=== PATIENT | female | born 1975 | race Caucasian/White ===

== ENCOUNTER 2020-10-27 08:00 | Outpatient (CLI) | payer OTHER ==
[2020-10-27 14:54] LABS: ALBUMIN 3.9 g/dL (3.2-5.5); ALBUMIN/GLOBULIN RATIO 1.1 (1.0-2.2); BILIRUBIN,TOTAL 0.6 mg/dL (0.2-1.0); CALCIUM 9.2 mg/dL (8.5-10.3); CREATININE 0.7 mg/dL (0.4-1.0); TOTAL PROTEIN 7.3 g/dL (6.7-8.2)
== END 2020-10-27 23:59 | disposition home or self-care (01) ==
LOC: LAB.S 08:00
PROVIDERS: ATTEND Physician Assistant
DX: R20.2 Paresthesia of skin (principal); E03.9 Hypothyroidism, unspecified
CPT/HCPCS: 36415; 80053; 83735; 84443

== ENCOUNTER 2020-11-26 08:02 | Outpatient (CLI) | payer OTHER ==
[2020-11-26 14:47] LABS: BASOPHILS % (AUTO) 0.5 %; EOSINOPHILS # (AUTO) 0.1 10^3/uL (0.0-0.7); EOSINOPHILS % (AUTO) 0.9 %; HGB - HEMOGLOBIN 14.2 g/dL (12.0-16.0); LYMPHOCYTES % (AUTO) 29.4 %; MEAN CORPUSCULAR HEMOGLOBIN 31.6 pg (27.0-31.0); MEAN CORPUSCULAR HGB CONC 33.6 g/dL (32.0-36.0); MEAN PLATELET VOLUME 10.6 fL (7.9-10.8); MONOCYTES # (AUTO) 0.6 10^3/uL (0.0-1.0); MONOCYTES % (AUTO) 9.2 %; NEUTROPHILS % (AUTO) 59.7 %; PLT - PLATELET COUNT 290 10^3/uL (130-450); RED BLOOD COUNT 4.49 10^6/uL (4.20-5.40); RED CELL DISTRIBUTION WIDTH 12.3 % (12.0-15.0); WHITE BLOOD COUNT 6.6 x10^3/uL (4.8-10.8)
[2020-11-26 15:49] LABS: % IRON SATURATION 19 % (20-50); CHOL/HDL RATIO 5.7 (<4.4); CHOLESTEROL 235 mg/dL; HDL CHOLESTEROL 41 mg/dL; IRON 79 ug/dL (28-170); LDL CHOLESTEROL,CALCULATED 166 mg/dL; TOTAL IRON BINDING CAPACITY 409 ug/dL (250-450); TRANSFERRIN 292 mg/dL (192-382); VLDL CHOLESTEROL 28 mg/dL
[2020-11-26 15:50] LABS: CRP - C-REACTIVE PROTEIN < 1.0 mg/dL (0-1.0)
== END 2020-11-26 08:03 | disposition home or self-care (01) ==
LOC: LAB.S 08:02
PROVIDERS: ATTEND Registered Nurse
DX: D36.13 Benign neoplasm of peripheral nerves and autonomic nervous system of lower limb, including hip (principal); E03.9 Hypothyroidism, unspecified; R20.2 Paresthesia of skin; G25.81 Restless legs syndrome
CPT/HCPCS: 36415; 80061; 82728; 83540; 83721; 84466; 85025; 86038; 86140

== ENCOUNTER 2020-12-13 09:53 | Outpatient (CLI) | payer OTHER ==
--- NOTE | 2020-12-13 10:35 | SLEEP CARE CONSULTATION ---
Information from patient questionnaire entered by Karen Carter. I have reviewed and concur with the information entered by Karen Carter. This document represents the service I personally performed and the decisions made by me, Kirsten Rowan MD, [facility]. History of Present Illness Service Date and Time: 12/13/2020 0953 Reason for Visit: New patient Chief Complaint: reports: Snoring, Other (Restless legs, tiredness, paused breathing and poor concentration) Date of Onset: 3 years Usual bedtime: 8-9 pm Time it takes to fall asleep: varies, ususally 10-30 minutes Snores at night: Yes Observed to quit breathing while asleep: No Sleeps alone due to snoring: No Number of times waking at night: 2-3 Reasons for waking at night: reports: Snoring, Gasping for air (rare), Pain Toss, Turn, or Twitch while sleeping: Yes Recalls having dreams: Yes Usually gets out of bed at: 4 am for work Feels refreshed in the morning: No Morning headache: Yes Sleepy or fatigued during the day: Yes (sometimes, depends on how I feel) Ever fallen asleep while driving: No Takes day naps: Yes Dreams during day naps: No Prior sleep studies: No Additional HPI information: I have the pleasure of seeing Ms. Roldan today regarding the possibility of her having obstructive sleep apnea. As you know, she is a 45 year old lady who complains of loud snore, observed apneas, unrefreshed sleep, and excessive daytime sleepiness for the past 3 years. The patient tells me that she normally goes to bed around 8 - 9 pm, and it takes her approximately 10 - 15 minutes to fall asleep. She has never been observed to stop breathing in her sleep. Her sleeps in the same bed. She can recall waking up on the average of 2 3 times during the night. Most of the time she wakes up because of having to use the bathroom. She has awakened occasionally because of her own snoring, choking, and having to gasp for air. There is not a lot of tossing and turning in her sleep. No somniloquy (sleep talking) or somnambulism (sleep walking). Generally she can recall having dreams. In the morning she usually gets up out of the bed around 4 a.m. not feeling refreshed nor rested. She has a morning headache. During the day she complains of feeling sleepy and fatigued. Her score on [place] Sleepiness Scale is 12 out of 24. She never has fallen asleep while driving nor has had any accident due to sleepiness. She usually takes naps during the day. She reports having impaired concentration during the day. She also reports having restless leg symptoms in the evening. 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 Patient is and lives in [place]. Have you smoked in the past 12 months: No Cigarettes per day (20/pack): 10 Years of smokin Quit date: 2004 Smoking Pack Years: 4.0 Alcohol use: No Caffeine use: Yes Caffeine amount and frequency: 2 cups in the AM Family History Family history of sleep disordered breathing: Yes (father ()) Family Hx Sleep Apnea: Father: Snoring Allergies and Home Medications Drug allergies reviewed: Yes (indomethacin and tramadol) Home medication list reviewed: Yes (levothroxine, naproxen, Mg, progesterone, Xyzal) Review of Systems Weight gain over past 5 years: 30 Cardiovascular: denies: high blood pressure, palpitations, chest pain, irregular heart rate or pulse, leg or foot swelling, have to sleep sitting up, other Respiratory: denies: shortness of breath, wheeze, sputum production, chronic cough, other Gastrointestinal: denies: heartburn, difficulty swallowing, nausea, vomitting, diarrhea, abdominal pain, other Urinary: reports: frequency, urgency Neurological: reports: headaches Psychiatric: reports: anxiety Ear/Nose/Throat: reports: nasal congestion, sinus problems, dry mouth/throat, wisdom teeth removed Endocrine: reports: thyroid disease, sluggishness, too hot or cold, increased urination Musculoskeletal: reports: joint pain, neck pain, back pain, joint swelling, muscle pain or cramping, other (psoriatic arthritis) Immunologic: reports: sneezing Physical Exam Vital signs obtained and entered by: Kirsten Rowan M.D. Blood Pressure: 130/80 Cuff size: regular Heart Rate: 93 O2 Saturation: 98 Height: 5 ft 8 in Weight: 262 lb Body Mass Index: 39.8 BMI Classification: Obese Neck circumference: 16 HEENT: No craniofacial malformation Impression and Plan IMPRESSION: 1. Obstructive Sleep Apnea-Hypopnea Syndrome, as evident by history of loud and irregular snoring, frequent awakenings during the night, unrefreshed sleep, morning headache, cognitive impairment, and daytime hypersomnolence. Narrow oropharynx and obesity are common predisposing factors for obstructive sleep apnea-hypopnea syndrome. I recommend proceeding to polysomnography to confirm the diagnosis and to assess severity. If she has significant sleep disordered breathing, a manual CPAP titration study will also be performed to find the optimal treatment pressure. I informed the patient of what the sleep studies involve and after some discussion, she agreed to proceed. Due to the long waiting time for the in-laboratory polysomnography, the patient will first have a home sleep apnea test (HSAT). Plan: 1. Schedule a home sleep apnea test (HSAT). If negative for sleep- disordered breathing, an in-laboratory polysomnography will follow. 2. Avoid long distance driving or when feeling sleepy. 3. Avoid alcohol, sedative and muscle relaxant around bedtime. 4. Attempt to lose weight. 5. Return for follow up after the test. Follow up recommended for: Weight management Visit Type: In Office Time Spent with Patient (minutes): 15 Provider Statement: I spent 100% of the Face to Face Visit with the patient with greater than 50% spent counseling the patient and coordination of care.
[2020-12-13 10:36] VITALS: BP 130/80
== END 2020-12-13 09:54 | disposition home or self-care (01) ==
LOC: SC 09:53
PROVIDERS: ATTEND Internal Medicine Pulmonary Disease
DX: G47.10 Hypersomnia, unspecified (principal); G47.8 Other sleep disorders; R41.89 Other symptoms and signs involving cognitive functions and awareness; R51.9 Headache, unspecified; R06.83 Snoring; E66.9 Obesity, unspecified; Z68.39 Body mass index [BMI] 39.0-39.9, adult
CPT/HCPCS: 99202; 99212

== ENCOUNTER 2021-01-10 14:57 | Outpatient (CLI) | payer OTHER | END 2021-01-10 14:58 | disposition home or self-care (01) | LOC: SC 14:57 | PROVIDERS: ATTEND Internal Medicine Pulmonary Disease | DX: G47.33 Obstructive sleep apnea (adult) (pediatric) (principal); E66.8 Other obesity; Z68.39 Body mass index [BMI] 39.0-39.9, adult | CPT/HCPCS: 95806 ==

== ENCOUNTER 2021-01-24 15:01 | Outpatient (CLI) | payer OTHER ==
--- NOTE | 2021-01-25 10:54 | SLEEP CARE CONSULTATION ---
Information from patient questionnaire entered by Girma Mccormack. I have reviewed and concur with the information entered by Girma Mccormack. This document represents the service I personally performed and the decisions made by me, Kirsten Rowan MD, [facility]. History of Present Illness Service Date and Time: 01/24/2021 1501 Initial [place] Sleepiness Scale score: 12 (in 2020) Current [place] Sleepiness Scale score: 12 Additional HPI information: HPI: Ms. Roldan returned for follow up of the home sleep apnea test (HSAT) performed on 01/10/2021. The test shows very severe obstructive sleep apnea- hypopnea with an AHI of 76.2 and lizbeth oxygen saturation of 80%. The respiratory events occurred independently of sleep stage and body position. The patient was informed of these findings. I explained to her the pathophysiology behind obstructive sleep apnea. We then spent quite a bit of time discussing different treatment options. For mild obstructive sleep apnea, surgery and oral appliance are alternatives to nasal CPAP therapy but in moderate or severe cases, nasal CPAP is the most effective and reliable treatment. After some discussion, she opted to go with the nasal CPAP therapy. I explained to her how CPAP machine works and what to expect when using the machine. She is encouraged to use CPAP every night especially in the first 2 to 3 nights in order to get used to it. She should call me or her CPAP supplier to discuss any mechanical problem that may occur. If she snores while wearing the CPAP or feels like she needs more air from the machine, she should notify me and I will increase the pressure. Sleep Study - Results Type of Sleep Study: Home sleep study Prior sleep studies: No Allergies and Home Medications Drug allergies reviewed: Yes Home medication list reviewed: Yes Review of Systems Review of systems same as previous: Yes Physical Exam Height: 5 ft 8 in Weight: 262 lb Body Mass Index: 39.8 BMI Classification: Obese Impression and Plan IMPRESSION: 1. Obstructive Sleep Apnea-Hypopnea Syndrome, very severe, associated with moderate hypoxemia. Obviously this is the cause of the patients symptoms of unrefreshed sleep, and excessive daytime sleepiness. As mentioned above, the patient will be started on a autoCPAP set between 5 and 15 cmH2O. Depending on her response and compliance she may be brought back for an overnight CPAP titration study. PLAN: 1. Prescription made for an autoCPAP, heated humidifier, and related supplies. . 2. Attempt to lose weight. 3. The patient was again cautioned on driving. She should be extra careful when driving until her sleepiness resolves completely on nasal CPAP therapy. 4. Return for follow up after one month of using the CPAP. Counseling Topics: Weight control Visit Type: In Office Time Spent with Patient (minutes): 15 Provider Statement: I spent 100% of the Face to Face Visit with the patient with greater than 50% spent counseling the patient and coordination of care.
== END 2021-01-24 15:02 | disposition home or self-care (01) ==
LOC: SC 15:01
PROVIDERS: ATTEND Internal Medicine Pulmonary Disease
DX: G47.33 Obstructive sleep apnea (adult) (pediatric) (principal); E66.9 Obesity, unspecified; Z68.39 Body mass index [BMI] 39.0-39.9, adult
CPT/HCPCS: 99212

== ENCOUNTER 2021-02-07 08:00 | Outpatient (CLI) | payer OTHER ==
--- NOTE | 2021-02-07 12:58 | XRAY Report ---
PROCEDURE: Ankle 3 View RT INDICATIONS: RIGHT ANKLE PAIN TECHNIQUE: 3 views of the ankle were acquired. COMPARISON: None FINDINGS: Bones: No fractures or dislocations. Ankle mortise is normally aligned. No suspicious bony lesions . Soft tissues: No tibiotalar joint effusion. Achilles tendon appears normal. IMPRESSION: No visualized acute fracture or dislocation. However, occult injury cannot be excluded. Recommend short interval imaging follow-up in 7-10 days as clinically indicated for additional evalua tion. Reviewed by: Amelia Langston MD on 02/07/2021 12:56 PM PDT Approved by: Amelia Langston MD on 02/07/2021 12:56 PM PDT Station ID: [id number]
== END 2021-02-07 23:59 | disposition home or self-care (01) ==
LOC: DI.S 08:00
PROVIDERS: ATTEND Physician Assistant Medical
DX: M25.571 Pain in right ankle and joints of right foot (principal)

== ENCOUNTER 2021-03-14 15:33 | Outpatient (CLI) | payer OTHER ==
--- NOTE | 2021-03-14 21:53 | SLEEP CARE CONSULTATION ---
Information from patient questionnaire entered by Karen Carter. I have reviewed and concur with the information entered by Karen Carter. This document represents the service I personally performed and the decisions made by me, Kirsten Rowan MD, [facility]. History of Present Illness Service Date and Time: 03/14/2021 1533 Previous diagnosis: Very Severe, Obstructive Sleep Apnea-Hypopnea Syndrome AHI: 76.2 (in 2020) Reason for follow up: first compliance Equipment type: CPAP Equipment obtained from: [employer] (in [place]) Mask style: Nasal Prior sleep studies: Yes Year and Where: 2020 - [facility] Type of Sleep Study: Home sleep study HPI additional information: HPI: Ms. Roldan returned today for follow up of nasal CPAP therapy. She was diagnosed to have very severe obstructive sleep apnea-hypopnea syndrome. The patient went to [employer] for the equipment and was fitted with a nasal mask. She reports using the device nightly but not all through the night. The compliance report shows usage in 30 nights out of the past 30 nights, averaging 3.7 hours a night. She complained of no particular problem with the device such as soreness on the face, dry nose, epistaxis, nasal congestion or headache. She thinks that the pressure of 5 15 cmH2O is occasionally too high. On the CPAP therapy she notices improvement in her sleep quality, and that she wakes up feeling fresher in the morning and more awake/alert during the day. The [place] Sleepiness Scale score 5. Her notices no snore at all. The average residual AHI is 3.3: and air leak, 2.5 L/min. The 90th percentile pressure is 9.7 cmH2O. CPAP Compliance Data - Data Reviewed with Patient Average duration of nightly device use: 3 hr 41 min Compliance rate %: 43 Current pressure setting (cmH2O): 5-15 Humidity settin Average residual AHI: 3.3 Subjective Missed days of use due to: reports: other (allergies, sneezing at night) Patient concerns: reports: condensation in mask/hose Current pressure setting perceived as: comfortable Initial [place] Sleepiness Scale score: 12 (in 2020) Current [place] Sleepiness Scale score: 5 Allergies and Home Medications Drug allergies reviewed: Yes Home medication list reviewed: Yes Review of Systems Review of systems same as previous: Yes Physical Exam Height: 5 ft 8 in Weight: 260 lb Body Mass Index: 39.5 BMI Classification: Obese Impression and Plan IMPRESSION: 1. Obstructive Sleep Apnea-Hypopnea Syndrome, very severe, with the patient doing fairly well on nasal CPAP therapy. She has [id number] compliance but significant clinical improvement. The current pressure appears effective but slightly uncomfortable. Overall, she is very satisfied with treatment and plans to continue with it long-term. For her comfort, I will set the pressure range at 5 10 cmH2O. PLAN: 1. Prescription to set the autoCPAP at 5 - 10 cmH2O. 2. Try to lose weight 3. Try a ResMed N30i mask 4. Prescription made to convert CPAP from rental to purchase. 5. Return in one month to document compliance. Follow up recommended for: Weight management Visit Type: In Office Time Spent with Patient (minutes): 15 Provider Statement: I spent 100% of the Face to Face Visit with the patient with greater than 50% spent counseling the patient and coordination of care.
== END 2021-03-14 15:34 | disposition home or self-care (01) ==
LOC: SC 15:33
PROVIDERS: ATTEND Internal Medicine Pulmonary Disease
DX: G47.33 Obstructive sleep apnea (adult) (pediatric) (principal); E66.9 Obesity, unspecified; Z68.39 Body mass index [BMI] 39.0-39.9, adult
CPT/HCPCS: 99212

== ENCOUNTER 2021-04-24 13:21 | Outpatient (CLI) | payer OTHER | END 2021-04-24 13:22 | disposition home or self-care (01) | LOC: LAB.S 13:21 | PROVIDERS: ATTEND Registered Nurse | DX: E03.9 Hypothyroidism, unspecified (principal) | CPT/HCPCS: 36415; 84443 ==

== ENCOUNTER 2021-05-09 09:53 | Outpatient (CLI) | payer OTHER ==
--- NOTE | 2021-05-16 12:25 | SLEEP CARE CONSULTATION ---
Information from patient questionnaire entered by Karen Carter. I have reviewed and concur with the information entered by Karen Carter. This document represents the service I personally performed and the decisions made by me, Kirsten Rowan MD, [facility]. History of Present Illness Service Date and Time: 05/09/2021 0953 Previous diagnosis: Very Severe, Obstructive Sleep Apnea-Hypopnea Syndrome AHI: 76.2 (in 2020) Reason for follow up: other (6 week with pressure change) Equipment type: CPAP Equipment obtained from: [employer] (in [place]) Mask style: Nasal Prior sleep studies: Yes Year and Where: 2020 - [facility] Type of Sleep Study: Home sleep study HPI additional information: HPI: Ms. Roldan returned today for follow up of nasal CPAP therapy after pressure change 2 months ago. She was diagnosed to have very severe obstructive sleep apnea-hypopnea syndrome. The patient went to [employer] for the equipment and was fitted with a nasal mask. She reports using the device almost nightly and all through the night. The compliance report shows usage in 30 nights out of the 30 nights between 03/30 04/28, averaging 4.2 hours a night. The > 4 hour compliance rate for the 30 day period is 70%. She complained of no particular problem with the device such as soreness on the face, dry nose, epistaxis, nasal congestion or headache. She thinks that the pressure of 5 10 cmH2O is more comfortable than 5 15 cmH2O. On the CPAP therapy she notices improvement in her sleep quality, and that she wakes up feeling fresher in the morning and more awake/alert during the day. The [place] Sleepiness Scale score 4. Her notices no snore at all. The average residual AHI is 4.4 (was 3.3): and air leak, 2.8 L/min. The 90th percentile pressure is 8.9 cmH2O. CPAP Compliance Data - Data Reviewed with Patient Average duration of nightly device use: 4 hr 7 min Compliance rate %: 64 (for 42 days)(met compliance 03/30-04/28 for 70%) Current pressure setting (cmH2O): 5-10 Humidity settin Average residual AHI: 4.4 Subjective Missed days of use due to: reports: other (TMJ flare up) Current pressure setting perceived as: comfortable Initial [place] Sleepiness Scale score: 12 (in 2020) Current [place] Sleepiness Scale score: 4 Allergies and Home Medications Drug allergies reviewed: Yes Home medication list reviewed: Yes Review of Systems Review of systems same as previous: Yes Physical Exam Height: 5 ft 8 in Weight: 242 lb Weight change since last visit: -18 Body Mass Index: 36.8 BMI Classification: Obese Impression and Plan IMPRESSION: 1. Obstructive Sleep Apnea-Hypopnea Syndrome, very severe, with the patient doing fairly well on nasal CPAP therapy. She now has adequate compliance and significant clinical improvement. The current pressure appears effective and comfortable. Overall, she is very satisfied with treatment and plans to continue with it long-term. No adjustment is necessary today. PLAN: 1. Continue with autoCPAP at 5 - 10 cmH2O. 2. Try to lose more weight 3. Try a ResMed N30i mask 4. Return for follow up in a year or earlier if there is any problem. Follow up with Sleep Care in: 1 year Follow up recommended for: Weight management Visit Type: In Office Time Spent with Patient (minutes): 15 Provider Statement: I spent 100% of the Face to Face Visit with the patient with greater than 50% spent counseling the patient and coordination of care.
== END 2021-05-09 09:54 | disposition home or self-care (01) ==
LOC: SC 09:53
PROVIDERS: ATTEND Internal Medicine Pulmonary Disease
DX: G47.33 Obstructive sleep apnea (adult) (pediatric) (principal); E66.9 Obesity, unspecified; Z68.36 Body mass index [BMI] 36.0-36.9, adult
CPT/HCPCS: 99212; 99213

== ENCOUNTER 2021-06-23 09:05 | Outpatient (CLI) | payer OTHER ==
[2021-06-23 15:47] LABS: CHOLESTEROL 160 mg/dL; HDL CHOLESTEROL 40 mg/dL; LDL CHOLESTEROL,CALCULATED 86 mg/dL; LDL/HDL RATIO 2.2 (<4.4); TRIGLYCERIDES 172 mg/dL; VLDL CHOLESTEROL 34 mg/dL
[2021-06-23 15:56] LABS: THYROID STIMULATING HORMONE 2.47 uIU/mL (0.34-5.60)
== END 2021-06-23 09:06 | disposition home or self-care (01) ==
LOC: LAB.S 09:05
PROVIDERS: ATTEND Registered Nurse
DX: E78.5 Hyperlipidemia, unspecified (principal); E03.9 Hypothyroidism, unspecified
CPT/HCPCS: 36415; 80061; 83721; 84443

== ENCOUNTER 2021-09-18 15:04 | Outpatient (CLI) | payer OTHER | END 2021-09-18 23:59 | disposition home or self-care (01) | LOC: LAB 15:04 | PROVIDERS: ATTEND Physician Assistant Medical | DX: R05.9 Cough, unspecified (principal); Z20.822 Contact with and (suspected) exposure to COVID-19 ==

== ENCOUNTER 2021-11-02 08:00 | Outpatient (CLI) | payer OTHER | END 2021-11-02 23:59 | LOC: LAB 08:00 | PROVIDERS: ATTEND Emergency Medicine | DX: J34.89 Other specified disorders of nose and nasal sinuses (principal); Z20.822 Contact with and (suspected) exposure to COVID-19 ==

== ENCOUNTER 2022-01-26 14:02 | Outpatient (CLI) | payer OTHER ==
[2022-01-26 19:58] LABS: BASOPHILS % (AUTO) 0.4 %; EOSINOPHILS # (AUTO) 0.1 10^3/uL (0.0-0.7); EOSINOPHILS % (AUTO) 0.6 %; HCT - HEMATOCRIT 39.7 % (37.0-47.0); HGB - HEMOGLOBIN 13.8 g/dL (12.0-16.0); LYMPHOCYTES # (AUTO) 2.2 10^3/uL (1.5-3.5); LYMPHOCYTES % (AUTO) 27.4 %; MEAN CORPUSCULAR HEMOGLOBIN 32.2 pg (27.0-31.0); MEAN CORPUSCULAR HGB CONC 34.8 g/dL (32.0-36.0); MEAN CORPUSCULAR VOLUME 92.5 fL (81.0-99.0); MEAN PLATELET VOLUME 10.7 fL (7.9-10.8); MONOCYTES # (AUTO) 0.6 10^3/uL (0.0-1.0); MONOCYTES % (AUTO) 7.1 %; NEUTROPHILS # (AUTO) 5.3 10^3/uL (1.5-6.6); NEUTROPHILS % (AUTO) 64.4 %; PLT - PLATELET COUNT 288 10^3/uL (130-450); RED BLOOD COUNT 4.29 10^6/uL (4.20-5.40); RED CELL DISTRIBUTION WIDTH 12.2 % (12.0-15.0); WHITE BLOOD COUNT 8.2 x10^3/uL (4.8-10.8)
[2022-01-26 20:13] LABS: ALBUMIN 4.3 g/dL (3.2-5.5); ALBUMIN/GLOBULIN RATIO 1.7 (1.0-2.2); ALKALINE PHOSPHATASE 46 IU/L (42-121); ALT ALANINE AMINOTRANSFERASE 23 IU/L (10-60); AST ASPARTATE AMINOTRANSFERASE 19 IU/L (10-42); BILIRUBIN,TOTAL 0.7 mg/dL (0.2-1.0); BUN - BLOOD UREA NITROGEN 14 mg/dL (6-20); CALCIUM 9.2 mg/dL (8.5-10.3); CARBON DIOXIDE - CO2 25 mmol/L (21-32); CHLORIDE 101 mmol/L (101-111); CHOL/HDL RATIO 3.5 (<4.4); CHOLESTEROL 145 mg/dL; CREATININE 0.8 mg/dL (0.4-1.0); GFR - MDRD 78 (>89); GLUCOSE 86 mg/dL (70-100); HDL CHOLESTEROL 42 mg/dL; LDL CHOLESTEROL,CALCULATED 80 mg/dL; LDL/HDL RATIO 1.9 (<4.4); POTASSIUM 3.6 mmol/L (3.5-5.0); SODIUM 136 mmol/L (135-145); TOTAL PROTEIN 6.9 g/dL (6.7-8.2); TRIGLYCERIDES 115 mg/dL; VLDL CHOLESTEROL 23 mg/dL
[2022-01-26 20:24] LABS: THYROID STIMULATING HORMONE 2.74 uIU/mL (0.34-5.60)
== END 2022-01-26 14:03 | disposition home or self-care (01) ==
LOC: LAB.S 14:02
PROVIDERS: ATTEND Registered Nurse
DX: E78.5 Hyperlipidemia, unspecified (principal); E03.9 Hypothyroidism, unspecified; Z79.899 Other long term (current) drug therapy
CPT/HCPCS: 36415; 80053; 80061; 83721; 84443; 85025

== ENCOUNTER 2022-10-02 13:29 | Outpatient (CLI) | payer OTHER ==
[2022-10-02 20:09] LABS: BASOPHILS # (AUTO) 0.1 10^3/uL (0.0-0.1); BASOPHILS % (AUTO) 0.5 %; EOSINOPHILS # (AUTO) 0.1 10^3/uL (0.0-0.7); EOSINOPHILS % (AUTO) 0.9 %; HCT - HEMATOCRIT 41.6 % (37.0-47.0); HGB - HEMOGLOBIN 13.7 g/dL (12.0-16.0); LYMPHOCYTES # (AUTO) 2.8 10^3/uL (1.5-3.5); LYMPHOCYTES % (AUTO) 28.7 %; MEAN CORPUSCULAR HEMOGLOBIN 31.3 pg (27.0-31.0); MEAN CORPUSCULAR HGB CONC 32.9 g/dL (32.0-36.0); MEAN PLATELET VOLUME 10.5 fL (7.9-10.8); MONOCYTES # (AUTO) 0.7 10^3/uL (0.0-1.0); MONOCYTES % (AUTO) 7.3 %; NEUTROPHILS % (AUTO) 62.2 %; PLT - PLATELET COUNT 294 10^3/uL (130-450); RED BLOOD COUNT 4.38 10^6/uL (4.20-5.40); RED CELL DISTRIBUTION WIDTH 12.6 % (12.0-15.0); WHITE BLOOD COUNT 9.7 x10^3/uL (4.8-10.8)
[2022-10-02 20:28] LABS: ALBUMIN 4.1 g/dL (3.2-5.5); ALBUMIN/GLOBULIN RATIO 1.4 (1.0-2.2); BILIRUBIN,TOTAL 0.3 mg/dL (0.2-1.0); CALCIUM 9.3 mg/dL (8.5-10.3); CREATININE 0.8 mg/dL (0.4-1.0); POTASSIUM 4.1 mmol/L (3.5-5.0); TOTAL PROTEIN 7.1 g/dL (6.7-8.2)
[2022-10-02 20:44] LABS: THYROID STIMULATING HORMONE 7.16 uIU/mL (0.34-5.60)
[2022-10-02 20:46] LABS: FREE T4 (FREE THYROXINE) 0.78 ng/dL (0.58-1.64)
[2022-10-02 21:13] LABS: ESTIMATED AVERAGE GLUCOSE 111 mg/dL (70-100); HEMOGLOBIN A1c% 5.5 % (4.27-6.07)
== END 2022-10-02 13:30 | disposition home or self-care (01) ==
LOC: LAB.S 13:29
PROVIDERS: ATTEND Nurse Practitioner Obstetrics & Gynecology
DX: R53.83 Other fatigue (principal); E66.9 Obesity, unspecified
CPT/HCPCS: 36415; 80053; 83036; 84439; 84443; 85025

== ENCOUNTER 2023-01-24 13:37 | Outpatient (CLI) | payer OTHER ==
[2023-01-24 20:47] LABS: T4 (THYROXINE) 12.42 ug/dL (6.09-12.23)
[2023-01-24 20:52] LABS: THYROID STIMULATING HORMONE 0.31 uIU/mL (0.34-5.60)
== END 2023-01-24 13:38 | disposition home or self-care (01) ==
LOC: LAB.S 13:37
PROVIDERS: ATTEND Registered Nurse
DX: E03.9 Hypothyroidism, unspecified (principal)
CPT/HCPCS: 36415; 80061; 83721; 84436; 84443; 84480

== ENCOUNTER 2023-02-23 07:20 | Outpatient (CLI) | payer OTHER ==
[2023-02-23 15:00] LABS: T4 (THYROXINE) 9.36 ug/dL (6.09-12.23)
[2023-02-23 15:04] LABS: THYROID STIMULATING HORMONE 2.29 uIU/mL (0.34-5.60)
[2023-02-23 15:07] LABS: CHOL/HDL RATIO 3.5 (<4.4); CHOLESTEROL 147 mg/dL; HDL CHOLESTEROL 42 mg/dL; LDL CHOLESTEROL,CALCULATED 69 mg/dL; LDL/HDL RATIO 1.6 (<4.4); TRIGLYCERIDES 181 mg/dL; VLDL CHOLESTEROL 36 mg/dL
== END 2023-02-23 07:21 | disposition home or self-care (01) ==
LOC: LAB.S 07:20
PROVIDERS: ATTEND Registered Nurse
DX: E03.9 Hypothyroidism, unspecified (principal); E78.5 Hyperlipidemia, unspecified
CPT/HCPCS: 36415; 80061; 83721; 84436; 84443; 84480

== ENCOUNTER 2023-04-03 14:37 | Outpatient (CLI) | payer OTHER ==
--- NOTE | 2023-04-03 19:15 | CT Report ---
PROCEDURE: SINUS SCREENING WO INDICATIONS: CHRONIC PANSINUSITIS TECHNIQUE: Noncontrast 3.0 mm axial images acquired from the frontal sinuses to the mid-sella, with coronal and sagittal reformats. For radiation dose reduction, the following was used: automated exposure control , adjustment of mA and/or kV according to patient size. COMPARISON: None. FINDINGS: Image quality: Excellent. Maxillary Sinuses: No bony remodeling or destruction. Sinuses are clear. Ethmoid Air Cells: No bony remodeling or destruction. Sinuses are clear. Sphenoid Sinuses: No bony remodeling or destruction. Sinuses are clear. Frontal Sinuses: No bony remodeling or destruction. Sinuses are clear. Ostiomeatal Complexes: The ostiomeatal complexes are patent, yet they are constitutionally narrowed, with bilateral Opal cells. Miscellaneous: Visualized intra-orbital contents are normal. 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 There is mild leftward nasal septal deviation. The lamina papyracea is intact. IMPRESSION: No significant active paranasal sinus disease is seen. The ostiomeatal complexes are patent, yet they are constitutionally narrowed, with bilateral Opal c ells. 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 There is mild leftward nasal septal deviation seen. Reviewed by: Heber Barraza MD on 04/03/2023 6:14 PM ANDRE Approved by: Heber Barraza MD on 04/03/2023 6:14 PM ANDRE Station ID: [id number]
== END 2023-04-03 14:38 | disposition home or self-care (01) ==
LOC: DI 14:37
PROVIDERS: ATTEND Otolaryngology
DX: R51.9 Headache, unspecified (principal); J32.4 Chronic pansinusitis; J34.2 Deviated nasal septum

== ENCOUNTER 2023-04-03 14:39 | Outpatient (CLI) | payer OTHER ==
--- NOTE | 2023-04-04 10:07 | Mammography Report ---
BILATERAL DIGITAL SCREENING MAMMOGRAM 3D/2D: 04/03/2023 CLINICAL: Mother with breast cancer. Routine screening. Comparison is made to exam dated: 08/20/2019 mammogram - [facility]. There are scattered areas of fibroglandular density in both breasts (category b / 25%-50% glandular t issue). No significant masses, calcifications, or other findings are seen in either breast. There has been no significant interval change. IMPRESSION: NEGATIVE There is no mammographic evidence of malignancy. A 1 year screening mammogram is recommended. Based on the Tyrer Cuzick model (a risk assessment model) the patients lifetime risk is 15.9% and he r 10 year risk is 3.4%. According to the ACR, ACS, and NCCN guidelines, an annual breast MRI exam jannie ng with mammogram is recommended if the patients lifetime risk is 20% or greater. This exam was interpreted at Station ID: [id number]. NOTE: For mammograms, a report in lay terms will be sent to the patient. Approximately 15% of breast malignancies will not be visualized mammographically. In the management of a palpable breast mass, a negative mammogram must not discourage biopsy of a clinically suspicious lesion. Electronically Signed By: Pankaj Lyon M.D. at/juana:04/04/2023 07:37:59 letter sent: No_Letter ACR BI-RADS Category 1: Negative 3341F PARENCHYMAL PATTERN: (A) - The breast(s) demonstrate(s) scattered fibroglandular densities. BI-RADS CATEGORY: (1) - 1 Mammogram [id number] 1 year screening LATERALITY: (B)
== END 2023-04-03 14:40 | disposition home or self-care (01) ==
LOC: DI 14:39
PROVIDERS: ATTEND Registered Nurse
DX: Z12.31 Encounter for screening mammogram for malignant neoplasm of breast (principal); Z80.3 Family history of malignant neoplasm of breast

== ENCOUNTER 2023-05-30 11:43 | Outpatient (CLI) | payer OTHER | END 2023-05-30 11:44 | disposition home or self-care (01) | LOC: LAB.S 11:43 | PROVIDERS: ATTEND Student in an Organized Health Care Education/Training Program | DX: E03.9 Hypothyroidism, unspecified (principal) | CPT/HCPCS: 36415; 84439; 84443 ==

== ENCOUNTER 2023-10-08 15:15 | Outpatient (CLI) | payer OTHER ==
--- NOTE | 2023-10-08 14:44 | SLEEP CARE CONSULTATION ---
Information from patient questionnaire entered by Wendy Pickard. I have reviewed and concur with the information entered by Wendy Pickard. This document represents the service I personally performed and the decisions made by me, Kirsten Rowan MD, [facility]. History of Present Illness Service Date and Time: 10/08/2023 1440 Previous diagnosis: Very Severe, Obstructive Sleep Apnea-Hypopnea Syndrome AHI: 76.2 (in 2020) Reason for follow up: annual (LAST SEEN 2020) Equipment type: CPAP (RESMED) Equipment obtained from: [employer] (in [place]) Mask style: Nasal Prior sleep studies: Yes Year and Where: 2020 - [facility] Type of Sleep Study: Home sleep study HPI additional information: Ms. Roldan was seen today via video telemedicine ([facility]) for follow up of nasal CPAP therapy after she was last seen 2 years ago. She was diagnosed to have very severe obstructive sleep apnea-hypopnea syndrome. The patient went to [facility] for the equipment. She now uses a ResMed AirTouch F-20 full face mask because nasal masks made her claustrophobic (unable to breathe through her mouth). She reports barely using the device due to cough and other upper respiratory symptoms. The compliance report shows usage in 12 nights out of the 365 nights. She complained of no particular problem with the device such as soreness on the face, dry nose, epistaxis, nasal congestion or headache. She thinks that the pressure of 5 10 cmH2O is alright. On the CPAP therapy she notices improvement in her sleep quality, and that she wakes up feeling fresher in the morning and more awake/alert during the day. The [place] Sleepiness Scale score 6. Sleep Study - Results Type of Sleep Study: Home sleep study Prior sleep studies: Yes Year and Where: 2020 - [facility] Subjective Initial [place] Sleepiness Scale score: 12 (in 2020) Current [place] Sleepiness Scale score: 6 (10/08/23) Allergies and Home Medications Drug allergies reviewed: Yes Home medication list reviewed: Yes Review of Systems Review of systems same as previous: Yes (NO CHANGE) Physical Exam Vital signs obtained and entered by: WENDY Bolivar MA Height: 5 ft 11 in (PER PT) Weight: 280 lb (PER PT) Body Mass Index: 39.0 BMI Classification: Obese Impression and Plan IMPRESSION: 1. Obstructive Sleep Apnea-Hypopnea Syndrome, very severe (AHI was 76.2), with the patient not using her CPAP due to persistent upper respiratory symptoms following a COVID infection a year ago. She has not gotten supplies for a while. To make the treatment more comfortable, I will lower the pressure range to 4 8 cmH2O. PLAN: 1. AutoCPAP lowered to 4- 8 cmH2O. 2. Try to lose weight. Bariatric surgery should be considered. 3. Prescription made for supplies through [employer]. 4. Return for follow up in two months. Counseling Topics: Weight control Prescriptions: Device supplies Follow up with Sleep Care in: 1-2 months Visit Type: Telehealth Video Video Type: Doximity Patient Location: Home Location of Provider: Office Patient agrees and consents to this telehealth visit type: Yes Patient agrees to have their insurance billed: Yes Time Spent with Patient (minutes): 15 Provider Statement: I spent 100% of the Telehealth Video Call with the patient with greater than 50% spent counseling the patient and coordination of care.
== END 2023-10-08 15:16 | disposition home or self-care (01) ==
LOC: SC 15:15
PROVIDERS: ATTEND Internal Medicine Pulmonary Disease
DX: G47.33 Obstructive sleep apnea (adult) (pediatric) (principal); E66.9 Obesity, unspecified; Z68.39 Body mass index [BMI] 39.0-39.9, adult; Z86.16 Personal history of COVID-19

== ENCOUNTER 2023-12-03 14:40 | Outpatient (CLI) | payer OTHER ==
--- NOTE | 2023-12-03 21:03 | SLEEP CARE CONSULTATION ---
Information from patient questionnaire entered by Wendy Pickard. I have reviewed and concur with the information entered by Wendy Pickard. This document represents the service I personally performed and the decisions made by me, Kirsten Rowan MD, [facility]. History of Present Illness Service Date and Time: 12/03/2023 1440 Previous diagnosis: Very Severe, Obstructive Sleep Apnea-Hypopnea Syndrome AHI: 76.2 (in 2020) Reason for follow up: other (2 MONTH F/U) Equipment type: CPAP (RESMED) Equipment obtained from: [facility] (in [place]) Mask style: Nasal Prior sleep studies: Yes Year and Where: 2020 - [facility] Type of Sleep Study: Home sleep study HPI additional information: Ms. Roldan had a telephone only visit for follow up of nasal CPAP therapy after she was last seen 2 months ago. She was diagnosed to have very severe obstructive sleep apnea-hypopnea syndrome. The patient went to [facility] for the equipment. She now uses a [employer]Med AirTouch F-20 full face mask because nasal masks made her claustrophobic (unable to breathe through her mouth). After the pressure was lowered from 5 10 cmH2O to 4 - 8 cmH2O, she has been using her CPAP more. On the CPAP therapy she notices improvement in her sleep quality, and that she wakes up feeling fresher in the morning and more awake/alert during the day. The [place] Sleepiness Scale score 2. The compliance data show usage in 49 out of the past 60 nights, averaging 4.6 hours a night. The residual AHI is 7.4, and average air leak is 1.8 L/minute. Sleep Study - Results Type of Sleep Study: Home sleep study Prior sleep studies: Yes Year and Where: 2020 - [facility] CPAP Compliance Data - Data Reviewed with Patient Average duration of nightly device use: 4HRS 33MINS Compliance rate %: 37 (10/01/23-11/29/23) Current pressure setting (cmH2O): 4-8 Average residual AHI: 7.4 Subjective Initial [place] Sleepiness Scale score: 12 (in 2020) Current [place] Sleepiness Scale score: 2 (12/03/23) Allergies and Home Medications Drug allergies reviewed: Yes Home medication list reviewed: Yes Review of Systems Review of systems same as previous: Yes (NO CHANGE) Physical Exam Vital signs obtained and entered by: WENDY Bolivar MA Height: 5 ft 11 in (PER PT) Weight: 250 lb (PER PT) Body Mass Index: 34.8 BMI Classification: Obese Impression and Plan IMPRESSION: 1. Obstructive Sleep Apnea-Hypopnea Syndrome, very severe (AHI was 76.2), with the patient now using her CPAP more after the pressure was lowered. She reports 30-lb weight loss in just 2 months through dieting. The plans to use her CPAP more. PLAN: 1. Leave the autoCPAP at 4- 8 cmH2O. 2. Try to lose more weight. 3. Return for follow up in two months to recheck compliance and residual AHI. Counseling Topics: Weight control Follow up with Sleep Care in: 1-2 months Visit Type: Telehealth Phone Video Type: Other Patient agrees and consents to this telehealth visit type: Yes Patient agrees to have their insurance billed: Yes Time Spent with Patient (minutes): 15 Provider Statement: I spent 100% of the Telehealth Phone Call with the patient with greater than 50% spent counseling the patient and coordination of care.
== END 2023-12-03 14:41 | disposition home or self-care (01) ==
LOC: SC 14:40
PROVIDERS: ATTEND Internal Medicine Pulmonary Disease
DX: G47.33 Obstructive sleep apnea (adult) (pediatric) (principal); E66.9 Obesity, unspecified; Z68.34 Body mass index [BMI] 34.0-34.9, adult

== ENCOUNTER 2024-01-29 08:35 | Outpatient (CLI) | payer OTHER ==
[2024-01-29 14:45] LABS: BASOPHILS % (AUTO) 0.4 %; EOSINOPHILS # (AUTO) 0.1 10^3/uL (0.0-0.7); EOSINOPHILS % (AUTO) 0.8 %; HCT - HEMATOCRIT 42.8 % (37.0-47.0); HGB - HEMOGLOBIN 13.8 g/dL (12.0-16.0); LYMPHOCYTES # (AUTO) 2.3 10^3/uL (1.5-3.5); LYMPHOCYTES % (AUTO) 29.9 %; MEAN CORPUSCULAR HGB CONC 32.2 g/dL (32.0-36.0); MEAN PLATELET VOLUME 11.5 fL (7.9-10.8); MONOCYTES # (AUTO) 0.7 10^3/uL (0.0-1.0); MONOCYTES % (AUTO) 8.6 %; NEUTROPHILS # (AUTO) 4.6 10^3/uL (1.5-6.6); NEUTROPHILS % (AUTO) 60.2 %; PLT - PLATELET COUNT 296 10^3/uL (130-450); RED CELL DISTRIBUTION WIDTH 12.6 % (12.0-15.0); WHITE BLOOD COUNT 7.7 x10^3/uL (4.8-10.8)
[2024-01-29 15:10] LABS: ALBUMIN 3.8 g/dL (3.2-5.5); ALBUMIN/GLOBULIN RATIO 1.8 (1.0-2.2); ALKALINE PHOSPHATASE 57 IU/L (42-121); ALT ALANINE AMINOTRANSFERASE 12 IU/L (10-60); AST ASPARTATE AMINOTRANSFERASE 13 IU/L (10-42); BILIRUBIN,TOTAL 0.7 mg/dL (0.2-1.0); BUN - BLOOD UREA NITROGEN 11 mg/dL (6-20); CALCIUM 9.1 mg/dL (8.5-10.3); CARBON DIOXIDE - CO2 26 mmol/L (21-32); CHLORIDE 108 mmol/L (101-111); CHOL/HDL RATIO 3.3 (<4.4); CHOLESTEROL 115 mg/dL; CREATININE 0.7 mg/dL (0.6-1.3); GFR - MDRD 90 (>89); GLUCOSE 95 mg/dL (74-104); HDL CHOLESTEROL 35 mg/dL; LDL CHOLESTEROL,CALCULATED 56 mg/dL; LDL/HDL RATIO 1.6 (<4.4); SODIUM 138 mmol/L (135-145); TOTAL PROTEIN 5.9 g/dL (6.4-8.9); TRIGLYCERIDES 120 mg/dL (48-352); VLDL CHOLESTEROL 24 mg/dL
[2024-01-29 15:13] LABS: THYROID STIMULATING HORMONE 0.05 uIU/mL (0.34-5.60)
== END 2024-01-29 08:36 | disposition home or self-care (01) ==
LOC: LAB.S 08:35
PROVIDERS: ATTEND Registered Nurse
DX: Z13.228 Encounter for screening for other metabolic disorders (principal); Z13.220 Encounter for screening for lipoid disorders; Z13.29 Encounter for screening for other suspected endocrine disorder; Z13.0 Encounter for screening for diseases of the blood and blood-forming organs and certain disorders involving the immune mechanism
CPT/HCPCS: 36415; 80053; 80061; 83721; 84439; 84443; 85025

== ENCOUNTER 2024-04-14 08:26 | Outpatient (CLI) | payer OTHER ==
[2024-04-14 15:56] LABS: THYROID STIMULATING HORMONE 1.12 uIU/mL (0.34-5.60)
== END 2024-04-14 08:27 | disposition home or self-care (01) ==
LOC: LAB.S 08:26
PROVIDERS: ATTEND Registered Nurse
DX: E03.9 Hypothyroidism, unspecified (principal)
CPT/HCPCS: 36415; 84443

== ENCOUNTER 2024-06-23 07:55 | Outpatient (CLI) | payer OTHER ==
[2024-06-23 16:38] LABS: THYROID STIMULATING HORMONE 1.59 uIU/mL (0.34-5.60)
== END 2024-06-23 07:56 | disposition home or self-care (01) ==
LOC: LAB.S 07:55
PROVIDERS: ATTEND Registered Nurse
DX: E03.9 Hypothyroidism, unspecified (principal)
CPT/HCPCS: 36415; 84443